=== PATIENT | female | born 1935 | race Caucasian/White ===

== ENCOUNTER 2016-12-13 07:23 | Inpatient (IN) ==
[2016-12-13] MEDS ORDERED: ASPIRIN PO STA (07:34)
[2016-12-13 07:42] LABS: MANUAL DIFF NEEDED? NO
[2016-12-13 07:51] LABS: BASO% 0.2 % (0.0-0.8); EOS# 0.25 X1000 (0.0-0.7); EOS% 2.8 % (0.0-10.0); HEMATOCRIT 36.7 % (37.0-47.0); IMM GRAN# 0.02 X1000 (0.0-0.04); IMM GRAN% 0.2 % (0.0-0.5); LYMPH# 1.98 X1000 (1.2-3.4); LYMPH% 22.4 % (20.5-51.1); MCH 32.3 PG (27-31); MCHC 32.7 g/dL (33-37); MCV 98.7 FL (81-99); MONO# 0.56 X1000 (0.11-0.59); MONO% 6.3 % (1.7-9.3); MPV 12.1 FL (7.4-10.4); NEUT% 68.1 % (42.2-75.2); PLT 205 X1000 (130-400); RBC 3.72 XMIL (4.2-5.4)
--- NOTE | 2016-12-13 08:00 | Diag Imaging Result Doc PS360 ---
CHEST-PORTABLE - 12/13/2016 INDICATION: CP TECHNIQUE: COMPARISON: 08/27/2016 FINDINGS: The lungs are normally expanded and clear. Heart size and mediastinal contours are normal. No pneumothorax or pleural effusion. IMPRESSION: Negative exam. Electronically signed by Sonu Marques 12/13/2016 7:57 AM
[2016-12-13 08:01] LABS: INR 1.03; PROTIME 10.8 Seconds (9.2-11.7); PTT 27.9 Seconds (22.0-36.0)
[2016-12-13 08:15] LABS: ALBUMIN 3.6 g/dL (3.5-5.0); MAGNESIUM 1.6 mg/dL (1.5-2.7); POTASSIUM 3.8 mmol/L (3.5-5.1); TOTAL BILIRUBIN 0.75 mg/dL (0.20-1.00); TOTAL PROTEIN 6.3 g/dL (6.3-8.3)
--- NOTE | 2016-12-13 08:57 | EKG Report ---
Test Performed on : 12/13/2016 07:26:11 AM Test Reason : Chest Pain Blood Pressure : / mmHG Vent. Rate : 056 BPM Atrial Rate : 241 BPM P-R Int : 000 ms QRS Dur : 090 ms QT Int : 404 ms P-R-T Axes : 000 -11 016 degrees QTc Int : 389 ms Atrial fibrillation. with slow ventricular response. Junctional ST depression, probably normal Abnormal ECG When compared with ECG of 23-OCT-2016 06:42, No significant change was found Unconfirmed Result
--- NOTE | 2016-12-13 10:01 | ED EKG INTERP ---
This chart was entered by Jaclyn Martinez Scribe, acting as scribe for Leora Damico MD. EKG Interpretation - EKG Time of EKG reading by physician:: 07:26 EKG Read and Signed by:: Leora Damico EKG Interpretation (*Must complete 3 of following elements*): Abnormal Rate: 56 Rhythm: atrial fib with slow ventricular response [place]: normal QRS: normal RI Interval: normal ST Wave: depressed (junctional ST depression, probably normal) This chart was documented by the indicated scribe, (Jaclyn Martinez Scribe) and accurately reflects the services I performed and decisions made by me, Leora Damico MD, as attested by the provider's signature.
--- NOTE | 2016-12-13 10:04 | PROVIDER DOCUMENTATION ---
This chart was entered by Jaclyn Martinez Scribe, acting as scribe for Leora Damico MD. HPI-Chest Pain - General Chief Complaint: Chest Pain Stated Complaint: chest pain Time Seen by Provider: 12/13/16 07:30 Source: patient Allergies/Adverse Reactions: Patient Allergies Allergy/AdvReac Type Severity Reaction Status Date / Time succinylcholine Allergy Severe Unknown Verified 12/13/16 07:37 adhesive tape Allergy Unknown HIVES Verified 12/13/16 07:37 hydromorphone HCl * Allergy Unknown Unknown Verified 12/13/16 07:37 [From Dilaudid] morphine Allergy Unknown Unknown Verified 12/13/16 07:37 meperidine HCl * AdvReac Mild AMS Verified 12/13/16 07:37 [From Demerol] all narcotics AdvReac Mild AMS Uncoded 12/13/16 07:37 Home Medications: Home Medication List Medication Instructions Recorded Confirmed Last Taken Type Allopurinol [Zyloprim] 300 mg PO HS 06/07/13 12/13/16 12/13/16 History Aspirin [Orion Chewable Aspirin] 81 mg PO QAM 06/07/13 12/13/16 12/13/16 History Digoxin [Lanoxin] 125 microgm PO QAM 06/07/13 12/13/16 12/13/16 History Metformin [Glucophage] 2 tab PO QAM 06/07/13 12/13/16 12/13/16 History Prednisone 5 mg PO QAM 06/07/13 12/13/16 12/13/16 History Sertraline [Zoloft] 100 mg PO QAM 06/07/13 12/13/16 12/13/16 History Furosemide 80 mg PO QAM 09/17/15 12/13/16 12/13/16 History Multivitamin [Multivitamins] 1 each PO QAM 09/17/15 12/13/16 12/13/16 History Apixaban [Eliquis] 5 mg PO BID 10/21/16 12/13/16 12/13/16 History Benzonatate 100 mg PO PRN PRN 10/21/16 12/13/16 12/13/16 History Cranberry Conc/C/Bacill Coag [Azo 1 each PO DAILY 10/21/16 12/13/16 12/13/16 History Cranberry Tablet] Metformin [Glucophage] 500 mg PO HS 10/21/16 12/13/16 12/13/16 History Mirtazapine 15 mg PO HS 10/21/16 12/13/16 12/13/16 History Montelukast [Singulair] 10 mg PO DAILY 10/21/16 12/13/16 12/13/16 History PRAVAstatin [Pravachol] 40 mg PO HS 10/21/16 12/13/16 12/13/16 History Spironolactone 25 mg PO QAM 10/21/16 12/13/16 12/13/16 History Trazodone [Desyrel] 50 mg PO QHS 10/21/16 12/13/16 12/13/16 History - History of Present Illness-CP Nature of Presenting Problem: 81 y/o F presents to ED cc of bilat shoulder,arm, and mid chest pain. Pt states this onset last night and has gotten worse. Pt has a hx of AFib w/ RVR. Pt does report some SOB. Daughter reports pt was dizzy and near syncope at home. Denies any fever/abd pain. Pt has had a heart work up in the past. Location: reports: central Chest Pain Radiation: reports: arms, neck, shoulders Quality of Pain: reports: aching, tightness Severity in ED: mild Onset/Duration: last night Timing: still present Context/Activities at Onset: reports: moderate activity Modifying Factors: improves with: nothing Associated Symptoms: reports: dizziness, shortness of breath, syncope. denies: abdominal pain, fever/chills, heartburn, vomiting Prior Chest Pain/Cardiac Workup: reports: stress test Similar Symptoms Previously?: No Recently Seen Here or By Another Healthcare Provider: No Review of Systems - Adult - REVIEW OF SYSTEMS - ADULT Constitutional: denies: chills, fever Ears, Nose, Mouth & Throat: denies: ear pain, nose pain Cardiovascular: reports: chest pain. denies: palpitations Respiratory: reports: shortness of breath. denies: cough Gastrointestinal: denies: abdominal pain, diarrhea, nausea, vomiting Genitourinary: denies: dysuria, discharge, frequency, hematuria Neurological: reports: dizziness/vertigo. denies: headache/migraines, seizure, slurred speech Past History - Adult - PAST MEDICAL HISTORY-ADULT Review of Records: reports: Old Records Reviewed, Nursing Assessment Review Major Childhood Illnesses: reports: denies history Cardiovascular: reports: A-Fib, hyperlipidemia Respiratory: reports: denies history Gastrointestinal: reports: denies history Obstetrical/Gynecological: reports: denies history Genitourinary: reports: denies history Musculoskeletal: reports: denies history Neurological: reports: denies history Endocrine/Immune: reports: Diabetes Other Conditions: reports: denies history - PRIOR SURGERIES/PROCEDURES Surgical/Procedure History: reports: orthopedic (extremity) (ankle), joint replacement (knee and hip), other (eye) - IMMUNIZATION STATUS Childhood Immunizations: See Nurse Assessment Flu Vaccine: See Nurse Assessment - FAMILY HISTORY Family History: reviewed, not pertinent - SOCIAL HISTORY Smoking: quit greater than 1 year Substance Use: none/never Alcohol Use Frequency: never Physical Exam-General - PHYSICAL EXAM-ADULT Initial Vital Signs Reviewed: Yes - CONSTITUTIONAL General Appearance: appears well, alert - EYES Eyes: pink conjunctivae - HEAD, EARS, NOSE, MOUTH & THROAT HENMT: moist mucous membranes, normal ENT inspection - NECK Neck: non-tender - RESPIRATORY Respiratory: chest non-tender, lungs clear, normal breath sounds - CARDIOVASCULAR Cardiovascular: normal peripheral pulses, no edema, bradycardia - GASTROINTESTINAL (ABDOMEN) Abdominal Exam: normal bowel sounds, non tender - LYMPHATIC Lymphatic: no adenopathy - MUSCULOSKELETAL Back Exam: no CVA tenderness, no vertebral tenderness Extremity: normal range of motion, non-tender - SKIN Integumentary: normal color, normal turgor, warm/dry - NEUROLOGIC Neurologic: grossly normal, no motor/sensory deficits - PSYCHIATRIC Psych/Mental Status: oriented x 3, other (AGITATED) Progress - PLAN OF CARE/RESULTS Progress/Plan/Lab Results: Vital Signs - 8 hr 12/13/16 07:31 12/13/16 09:50 Temperature 97.2 F L Pulse Rate 53 L 60 Respiratory Rate 19 17 Blood Pressure 157/68 110/58 O2 Sat by Pulse Oximetry 93 L 95 Laboratory Results - last 24 hr 12/13/16 12/13/16 12/13/16 07:25 07:25 07:25 WBC RBC Hgb Hct MCV MCH MCHC RDW Std Deviation Plt Count MPV Immature Gran % (Auto) Neut % (Auto) Lymph % (Auto) Elbert % (Auto) Eos % (Auto) Baso % (Auto) Immature Gran # (Auto) Neut # (Auto) Lymph # (Auto) Elbert # (Auto) Eos # (Auto) Baso # (Auto) PT INR PTT (Actin FS) D-Dimer 0.45 Sodium 142 Potassium 3.8 Chloride 99 Carbon Dioxide 29 Anion Gap 14 BUN 32 H Creatinine 1.2 H Estimated GFR/1.73 m2 43 BUN/Creatinine Ratio 27 Glucose 138 H Calculated Osmolality 292 Calcium 9.0 Magnesium 1.6 Total Bilirubin 0.75 AST 15 ALT 10 Alkaline Phosphatase 88 Troponin T Quv-D-Zhwknngtwxy Pept 1258 H Total Protein 6.3 Albumin 3.6 Globulin 2.7 Albumin/Globulin Ratio 1.3 Digoxin 12/13/16 12/13/16 12/13/16 07:25 07:25 07:25 WBC RBC Hgb Hct MCV MCH MCHC RDW Std Deviation Plt Count MPV Immature Gran % (Auto) Neut % (Auto) Lymph % (Auto) Elbert % (Auto) Eos % (Auto) Baso % (Auto) Immature Gran # (Auto) Neut # (Auto) Lymph # (Auto) Elbert # (Auto) Eos # (Auto) Baso # (Auto) PT 10.8 INR 1.03 PTT (Actin FS) 27.9 D-Dimer Sodium Potassium Chloride Carbon Dioxide Anion Gap BUN Creatinine Estimated GFR/1.73 m2 BUN/Creatinine Ratio Glucose Calculated Osmolality Calcium Magnesium Total Bilirubin AST ALT Alkaline Phosphatase Troponin T < 0.010 Hun-A-Tmmdghkkclu Pept Total Protein Albumin Globulin Albumin/Globulin Ratio Digoxin 0.9 12/13/16 07:28 WBC 8.85 RBC 3.72 L Hgb 12.0 Hct 36.7 L MCV 98.7 MCH 32.3 H MCHC 32.7 L RDW Std Deviation 14.4 Plt Count 205 MPV 12.1 H Immature Gran % (Auto) 0.2 Neut % (Auto) 68.1 Lymph % (Auto) 22.4 Elbert % (Auto) 6.3 Eos % (Auto) 2.8 Baso % (Auto) 0.2 Immature Gran # (Auto) 0.02 Neut # (Auto) 6.02 Lymph # (Auto) 1.98 Elbert # (Auto) 0.56 Eos # (Auto) 0.25 Baso # (Auto) 0.02 PT INR PTT (Actin FS) D-Dimer Sodium Potassium Chloride Carbon Dioxide Anion Gap BUN Creatinine Estimated GFR/1.73 m2 BUN/Creatinine Ratio Glucose Calculated Osmolality Calcium Magnesium Total Bilirubin AST ALT Alkaline Phosphatase Troponin T Mxu-[id number]-Qptoyiwslmc Pept Total Protein Albumin Globulin Albumin/Globulin Ratio Digoxin Orders Category Date Time Status Cardiac Monitoring DIRECTED Care 12/13/16 07:34 Active Cardiac Monitoring DIRECTED Care 12/13/16 07:34 Active Oxygen Therapy- ED Nursing DIRECTED Care 12/13/16 07:34 Active Saline Loc NOW Care 12/13/16 07:34 Active Saline Loc NOW Care 12/13/16 07:34 Active CHEST-PORTABLE [RAD] Stat Exams 12/13/16 07:34 Completed CBC WITH ELECTRONIC DIFF [HEME] Stat Lab 12/13/16 07:28 Completed CK PROFILE [SP CHEM] Stat Lab 12/13/16 07:34 Ordered COMPREHENSIVE METABOLIC PANEL [CHEM] Stat Lab 12/13/16 07:25 Completed D-DIMER [CHEM] Stat Lab 12/13/16 07:25 Completed DIGOXIN [TDM] Stat Lab 12/13/16 07:25 Completed MAGNESIUM [CHEM] Stat Lab 12/13/16 07:25 Completed PRO B-NATRIURETIC PEPTIDE Stat Lab 12/13/16 07:25 Completed PROTIME WITH INR [COAG] Stat Lab 12/13/16 07:25 Completed PTT [COAG] Stat Lab 12/13/16 07:25 Completed TROPONIN T Stat Lab 12/13/16 07:25 Completed Aspirin Med 12/13/16 07:34 Discontinued 325 mg PO STAT STA EKG [EKG] Stat Ther 12/13/16 07:34 Draft PLAN: LABS, EKG, ASPIRIN WHILE IN ED PT HEART RATE DROPPED IN TO THE 30s. SINCE THIS EPISODE PT HEART RATE RUNS FROM 30-50. DAUGHTER IS AT BEDSIDE AND SHE IS POWER OF ENGINEER [employer]. PT IS WANTING TO LEAVE AND GO HOME. DAUGHTER DOES NOT WANT PT TO LEAVE. Result Diagrams: 12/13/16 07:28 12/13/16 07:25 - REASSESSMENT Reassessment #1 Time Reassessed: 09:20 Status: unchanged (PT IS WANTING TO GO HOME. PT DAUGHTER IS POWER OF ENGINEER [employer] AND IS AT BEDSIDE NOT WANTING PT TO GO HOME.) - CONSULTS/PCP/HOSPITALIST Notification #1 *Consult/PCP/Hospitalist*: (hospitalist) Time Discussed: 09:37 Consult Disposition: Admit (PT WILL BE ADMITTED) Departure - Departure Time of Disposition Decision: 10:03 DIAGNOSIS: Bradycardia Chest pain Qualifiers: Chest pain type: unspecified Qualified Code(s): R07.9 - Chest pain, unspecified Disposition: ADMITTED INPATIENT 09 Certified Medical Emergency: Emergent Condition: Stable Referrals and Follow-Ups: Marizol Alfaro MD [Primary Care Provider] - - Critical Care Note This patient required my direct & personal management of CC.: No This chart was documented by the indicated scribe, (Jaclyn Martinez Scribe) and accurately reflects the services I performed and decisions made by me, Leora Damico MD, as attested by the provider's signature.
--- NOTE | 2016-12-13 11:47 | Diag Imaging Result Doc PS360 ---
MRI BRAIN W/O CONTRAST - 12/13/2016 INDICATION: Confusion, Left sided weakness COMPARISON: 05/16/2016 FINDINGS: There is a sizable area of encephalomalacia at the right inferior occipital lobe compatible with the patient's old infarction. There is significant, scattered bilateral cerebral white matter hyperintensity on the T2 and FLAIR weighted images compatible with chronic microvascular disease. No intracranial mass or hemorrhage. No area of restricted diffusion. IMPRESSION: No acute disease. Rather advanced chronic ischemic changes of the brain. Electronically signed by Sonu Marques 12/13/2016 11:44 AM
--- NOTE | 2016-12-13 11:49 | Diag Imaging Result Doc PS360 ---
MRI CERVICAL SPINE W/O CONTRAS - 12/13/2016 INDICATION: neck pain with bilateral UE radiculopathy TECHNIQUE: COMPARISON: None FINDINGS: Alignment is anatomic. Vertebral body heights are preserved. There is moderately advanced disc degeneration with some narrowing at C3-4, C4-5 and C5-6. The brainstem and cervical cord are normal. No bone marrow edema. At C2-3 level is normal. At C3-4 there is a large posterior disc bulge causing moderate central canal stenosis and flattening the cervical cord. At C4-5 there is a large posterior disc bulge with osteophytes causing moderate to severe central canal stenosis and flattening the cord. At C5-6 there is a large posterior disc bulge causing moderate central canal stenosis. At C6-7 and C7-T1 levels are normal. IMPRESSION: Moderate to severely advanced cervical spondylosis. No acute abnormality. Electronically signed by Sonu Marques 12/13/2016 11:47 AM
--- NOTE | 2016-12-13 12:37 | HISTORY AND PHYSICAL ---
CHIEF COMPLAINT: Neck and chest pain. HISTORY OF PRESENT ILLNESS: Ms. Azevedo is an 81-year-old female with a history of previous CVAs with chronic left-sided weakness, she has chronic atrial fibrillation on Eliquis therapy, Vadim's disease, and multiple other comorbidities. She has been in her normal state of health until she woke up this morning at around midnight with acute pain in the posterior neck radiating down both arms. There was also associated chest pain and nausea and vomiting. The chest pain was midsternal and had association with the neck and arm pain but she is unsure if the pain originated in the chest and went to her neck or vice versa. She tried to call for her daughter but no one came into the room so she waited till about 4 in the morning, when her daughter came and checked on her and then came to the ER. The pain essentially went away on its own. It was not made worse or relieved with anything. At this time she does have quite a bit of neck pain when she flexes her neck. The chest pain was associated with shortness of breath, mild diaphoresis and nausea and vomiting. However the patient has recently had her gallbladder taken out and has had chronic vomiting with any type of oral intake since that time. When she got to the ER she had labs and diagnostics done. Initial chest x-ray did not show anything acute. EKG shows atrial fibrillation with a slow ventricular response at 55 beats per minute. 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 Her daughter reports that she noted slurred speech and confusion early this morning. There has been no recent fever, chills, cough or congestion. She has no overt abdominal pain. She does report orthopnea and occasional lower extremity edema. Given the constellation of her symptoms we are going to admit her for further treatment and evaluation. PAST MEDICAL HISTORY: 1. Recent acute right occipital infarct on 05/16/2016. 2. Chronic atrial fibrillation. 3. 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 4. Diabetes mellitus. 5. Gout. 6. COPD. 7. Hypertension. 8. Hyperlipidemia. SURGICAL HISTORY: She has had 3 sections. Carpal tunnel release bilaterally. Hysterectomy. Bilateral hip arthroplasty and bilateral knee arthroplasty. FAMILY HISTORY: Noncontributory. SOCIAL HISTORY: Patient has a distant history of nicotine dependence. She is and lives here in [place] with her daughter. She currently does not use tobacco, alcohol or drugs. REVIEW OF SYSTEMS: Fourteen-point review of systems was obtained and found to be negative with the exception of the HPI. HOME MEDICATIONS: Allopurinol 300 mg p.o. at bedtime, Eliquis 5 mg b.i.d., 81 mg aspirin daily, Tessalon Perles as needed, digoxin 125 mcg daily. Lasix 80 mg a.m. Glucophage 1000 mg a.m. Glucophage 500 mg at bedtime. Mirtazapine 15 mg p.o. at bedtime. Singulair 10 mg daily, multivitamin 1 a.m. Pravachol 40 mg p.o. at bedtime. Prednisone 5 mg p.o. a.m. Zoloft 100 mg p.o. a.m. Aldactone 25 mg p.o. a.m. and Desyrel 50 mg p.o. at bedtime. ALLERGIES: Succinylcholine, adhesive tape, Dilaudid, morphine. All narcotics. PHYSICAL EXAMINATION: VITAL SIGNS: Blood pressure is 110/58, heart rate 60, respiratory rate 17, O2 saturations 95% on room air. Temperature is 97.2 degrees. GENERAL: This is a pleasant, well nourished, well-nourished 81-year-old female, lying in a hospital bed. No acute distress. NEUROLOGIC: The patient is awake and alert. She is slightly confused with left-sided hemiplegia but she does not have slurred speech. She does have a slight left-sided facial droop. She will follow commands appropriately. HEENT: Head is atraumatic and normocephalic. Her pupils are equal, round, and reactive to light. Oral mucosa is moist. Trachea is midline. There is no JVD. CHEST: Clear to auscultation bilaterally. CARDIOVASCULAR: Irregular and bradycardic. S1-S2 is noted, 2/6 systolic ejection murmur noted. GASTROINTESTINAL: Abdomen soft, nondistended, and nontender. Bowel sounds are positive. EXTREMITIES: Trace edema and diminished pulses bilaterally. There is no clubbing or cyanosis. DIAGNOSTIC DATA: WBC 8.85, hemoglobin 12, hematocrit 36.7, platelet count 205,000. INR 1.03. D- dimer 0.45. Sodium 142, potassium 3.8, chloride 99, CO2 29, anion gap 14, BUN 32, creatinine 1.2, glucose 138. Magnesium 1.6. Total bilirubin 0.75, AST 15, ALT 10. Alkaline phosphatase 88. CK 19 troponin negative. ProBNP 1258. Albumin 3.6, digoxin 0.9. EKG, atrial fibrillation with slow ventricular response. Chest x-ray, no acute process. ASSESSMENT AND PLAN: 1. Acute onset of neck pain with upper extremity paresthesia: Symptoms are more consistent with cervical spine disease. However, given her reports of slurred speech and confusion, we are going to go ahead and rule out stroke as well. We will check an MRI of the brain and cervical spine. She has had an echocardiogram in August of this year which showed an EF of 61% with mild aortic insufficiency, so we will not repeat that study. We will continue all of her home medications with the exception of antihypertensives at least for now until we know there has been no acute stroke. 2. Chest pain: Atypical in nature. The patient certainly has risk factors. We are going to consult Cardiology, trend her enzymes and continue her home medications with the exception of antihypertensives. 3. Vadim disease: Continue her prednisone. This is stable. 4. Chronic atrial fibrillation: Rate seems to be at her baseline so we will continue her digoxin and her Eliquis and monitor telemetry. 5. Chronic kidney disease: Creatinine is 1.2 with a GFR of 43. This is around her baseline. We will continue to monitor. 6. Borderline diabetes mellitus. We will add patterned sugars and sliding scale insulin. 7. Deep venous thrombosis prophylaxis will be provided with Eliquis. Further recommendations to follow. Dictated by ERIC Arcos for Lilibeth Patel MD cc: ERIC Arcos MD
[2016-12-13] MEDS ORDERED: TESSALON PO PRN (13:10)
[2016-12-13 14:28] LABS: URINE CULTURE NEEDED? NO; URINE MICRO REVIEW NEEDED? NO; URINE SOURCE CLEAN CATCH
[2016-12-13 14:34] LABS: BILIRUBIN URINE NEGATIVE (NEGATIVE); BLOOD URINE NEGATIVE (NEGATIVE); COLOR YELLOW; GLUCOSE URINE NEGATIVE (NEGATIVE); LEUKOCYTES URINE NEGATIVE (NEGATIVE); NITRITE URINE NEGATIVE (NEGATIVE); PH URINE 5.5; PROTEIN URINE NEGATIVE (NEGATIVE); SP GRAVITY URINE 1.014; TURBIDITY URINE CLEAR (CLEAR); UR EPITHELIAL CELLS <10 /HPF (<10); URINE BACTERIA NEGATIVE /HPF; URINE RBC <10 /HPF (<10); URINE WBC <10 /HPF (<10); UROBILINOGEN URINE NORMAL (NORMAL)
[2016-12-13] MEDS ORDERED: LEXISCAN ONE (14:40)
--- NOTE | 2016-12-13 15:30 | CONSULTATION ---
DATE OF CONSULTATION: 12/13/2016 REASON FOR CONSULTATION: Cardiology consulted for neck pain and chest discomfort. HISTORY OF PRESENT ILLNESS: Ms Azevedo is an 81-year-old lady with history of previous CVAs, chronic left-sided weakness, chronic atrial fibrillation on anticoagulation therapy, [place]'s disease, other comorbidities. She was in a normal state of health. She had pain more so on the posterior portion of her neck. In addition, the pain radiated down to her left arm, more so to her right arm as well, and she also had some chest discomfort. Describes it as midsternal. There is no associated diaphoresis. Chest pain associated with some shortness of breath. She did not complain of any palpitations or syncope. REVIEW OF SYSTEMS: Fourteen-point review of systems was done. GI: There is no history of nausea, vomiting, diarrhea. There is no history of hematemesis or melena. Central nervous system: No focal weakness to suggest a CVA or TIA. Genitourinary: There is no dysuria or hematuria. PAST MEDICAL HISTORY: 1. Recent occipital right infarct 05/16/2016. 2. Chronic atrial fibrillation. 3. Vadim's disease. 4. Diabetes. 5. Gout. 6. COPD. 7. Hypertension. 8. Hyperlipidemia. 9. Bilateral hip arthroplasty. 10. Bilateral knee arthroplasty. 11. Carpal tunnel release. FAMILY HISTORY: Noncontributory. SOCIAL HISTORY: Patient does not smoke. Does not drink. HOME MEDICATIONS: 1. Allopurinol 300 mg. 2. Eliquis 5 mg b.i.d. 3. Enteric-coated aspirin 81 mg. 4. Digoxin 0.125 mg a day. 5. Lasix 80 mg. 6. Glucophage 1000 mg plus 500 mg. 7. Mirtazapine 15 mg at bedtime. 8. Singular 10 mg. 9. Pravachol 40 mg. 10. Prednisone 5 mg. 11. Zoloft. 12. Aldactone 25 mg. ALLERGIES: Allergic to succinylcholine, adhesive tape, Dilaudid, morphine. PHYSICAL EXAMINATION: Vital signs: Blood pressure 110/58. Neck: Normal jugular venous pressure. There is no thyromegaly, no carotid bruit. Cardiovascular: First and second heart sounds were heard. There was no S3 gallop. There was faint systolic murmur. Respiratory: Normal air entry. There are no crepitations or rhonchi. Abdomen: Soft, nontender. There was no guarding or rigidity. Bowel sounds were heard. Central nervous system: Alert, was moving all 4 extremities. Detailed central nervous system examination not performed. Extremities: Examination of extremities revealed no pedal edema. DIAGNOSTIC STUDIES: Electrocardiogram revealed atrial fibrillation with nonspecific ST-T changes. First set of cardiac enzymes were negative. ASSESSMENT AND PLAN: Ms Liv Azevedo is an 81-year-old lady with history of chronic atrial fibrillation, diabetes, cerebrovascular accident in the past, arthritis who comes with complaints of having pain more so in the neck region, then subsequent radiation to the arms and also some retrosternal chest discomfort. Cardiac enzymes were negative. At the time of my examination patient was pain free. PLAN: 1. She has increased the risk factors. We will set her up to undergo a Lexiscan Cardiolite stress test to rule out ischemia. 2. Chronic atrial fibrillation. Continue with current medications. 3. Anticoagulation therapy. She is on Eliquis. I have not made any changes to her medication. 4. Given her symptoms of pain more so in the neck region in addition to difficulty in speech noted, MRI was done which revealed no acute disease, chronic ischemic changes noted. 5. She had a cervical spine MRI, which revealed moderate to severely advanced cervical spondylosis. Chest x-ray was unremarkable. Thank you for the consult. We will follow hospital course. cc: MD Lilibeth Garcia MD
[2016-12-13] MEDS: HUMALOG SUBQ SCH ×3 (17:29→21:43)
--- NOTE | 2016-12-13 18:43 | Diag Imaging Result Document ---
PROCEDURE NAME: MYOCARDIAL PERFU SCAN, STRESS - 12/13/2016 SUMMARY: The patient was administered Lexiscan after which the heart rate went from 66 beats per minute to 77 beats per minute. The blood pressure went from 155/75 to 145/68. With Lexiscan, the patient denied chest discomfort. Following the administration of Lexiscan, the patient was administered 30.0 mCi of technetium-99m sestamibi after which gated stress cardiac images were obtained. Baseline ECG demonstrated atrial fibrillation. With Lexiscan, there were no diagnostic ST-segment changes. Occasional premature ventricular complex was observed. SPECT images were reconstructed in the short, horizontal, and vertical long axis. Review of these images demonstrated no scintigraphic evidence of inducible myocardial ischemia or infarct. Gated images demonstrate a calculated left ventricular ejection fraction of 73% with symmetrical wall motion. CONCLUSIONS: 1. Adequate response to Lexiscan. 2. Clinically negative for chest pain. 3. Electrocardiographically negative for Lexiscan induced myocardial ischemia. 4. Lexiscan sestamibi images demonstrate no scintigraphic evidence of inducible myocardial ischemia. Normal left ventricular systolic function demonstrated. cc: MD Chadd Baltazar MD
[2016-12-13] MEDS ORDERED: ZYLOPRIM PO SCH (21:00)
[2016-12-13] MEDS ORDERED: DESYREL PO SCH (21:00)
[2016-12-13] MEDS ORDERED: PRAVACHOL PO SCH (21:00)
[2016-12-13] MEDS ORDERED: REMERON PO SCH (21:00)
[2016-12-13] MEDS: ELIQUIS PO SCH (21:24)
[2016-12-14 05:30] VITALS: BP 122/37
[2016-12-14] MEDS: HUMALOG SUBQ SCH (06:18)
[2016-12-14] MEDS ORDERED: THERA M PLUS PO SCH (09:00)
[2016-12-14] MEDS ORDERED: PATIENT'S OWN MED PO SCH (09:00)
[2016-12-14] MEDS ORDERED: PREDNISONE PO SCH (09:00)
[2016-12-14] MEDS ORDERED: ASPIRIN PO SCH (09:00)
[2016-12-14] MEDS ORDERED: SINGULAIR PO SCH (09:00)
[2016-12-14] MEDS ORDERED: ZOLOFT PO SCH (09:00)
[2016-12-14] MEDS ORDERED: LANOXIN PO SCH (09:00)
[2016-12-14] MEDS: ELIQUIS PO SCH (09:42)
--- NOTE | 2016-12-21 16:18 | DISCHARGE SUMMARY ---
ADMISSION DATE: 12/13/2016 DISCHARGE DATE: 12/14/2016 FINAL DISCHARGE DIAGNOSES: 1. Chronic atrial fibrillation. 2. Chest pain. 3. Diabetes mellitus type 2. 4. History of stroke. CONSULTATIONS REQUESTED DURING THIS HOSPITAL STAY: Cardiology consultation with Dr. Yo. IMAGING PERFORMED DURING THIS HOSPITAL STAY: Myocardial perfusion scan which was noted to be normal. HOSPITAL COURSE: Ms. Azevedo is an 81-year-old female with a history of multiple medical problems, who presented to the ER with chest pain. Given the patient's extensive cardiac history, she was admitted to the hospitalist's service to rule out for MA. Serial cardiac enzymes and troponins were done, which were noted to be negative. Also, the patient's EKG was unremarkable. The patient was scheduled for a myocardial perfusion scan, which was done and noted to be normal. The patient was cleared for discharge by the enrollment representative on 12/14/2016. DISCHARGE MEDICATIONS: 1. Aspirin 81 mg p.o. every morning. 2. Digoxin 125 mcg oral daily. 3. Metformin 1000 mg every morning. 4. Zoloft 100 mg every morning. 5. Allopurinol 300 mg p.o. at bedtime. 6. Prednisone 5 mg p.o. every morning. 7. Multivitamin 1 tab oral daily. 8. Lasix 80 mg oral every morning. 9. Aldactone 25 mg p.o. every morning. 10. Singulair 10 mg p.o. daily. 11. Eliquis 5 mg p.o. twice a day. 12. Trazodone 50 mg p.o. at bedtime. 13. Pravastatin 40 mg p.o. at bedtime. 14. Remeron 15 mg p.o. at bedtime. DISCHARGE DIET: 1800 ADA diet and low-sodium diet. ACTIVITY: As tolerated. FOLLOWUP INSTRUCTIONS: The patient will need to follow up with her enrollment representative as scheduled. cc: Lilibeth Patel MD
== END 2016-12-14 10:48 | disposition home or self-care (01) ==
LOC: ED 07:23 → 3N 12:10
PROVIDERS: ADMIT Internal Medicine; ATTEND Internal Medicine